=== PATIENT | male | born 1965 | race Caucasian/White ===

== ENCOUNTER 2023-06-03 16:48 | Outpatient (CLI) | payer OTHER, SELFPAY ==
--- NOTE | ~2023-06-03 | MR_ITS ---
EXAMINATION: MR shoulder RT wo con DATE: 06/03/2023 17:28 INDICATION: Shoulder pain, loss of range of motion. Injury after moving furniture. History of rotator cuff repair. TECHNIQUE: Magnetic resonance imaging (MRI) of the right shoulder was performed x-ray right shoulder 05/20/2023 intravenous contrast. Sequences included axial PD-weighted FS FSE, coronal oblique PD-weigh ofelia FS FSE and T2-weighted FS FSE, and sagittal oblique T2-weighted FS FSE and T1-weighted FSE. COMPARISON: X-ray right shoulder 05/20/2023. FINDINGS: Coracoacromial arch: No significant anterolateral downsloping of the type II acromion. No subacromial narrowing. Mild subc oracoid narrowing. Severe AC joint hypertrophy and significant inferior osteophytosis. Rotator cuff: Thinning of the distal cuff. Prior rotator cuff repair. Bursal sided fraying. 6 mm near full-thicknes s articular sided tear of the infraspinatus at the 12:00 position, with a focal associated full-thick ness perforation. Tendinopathy involving the infraspinatus and supraspinatus tendons. Longitudinally oriented intrasubstance type tearing at the musculotendinous junction of the infraspinatus. The teres minor is intact. Mild partial tear of the subscapularis. Biceps tendon and glenoid labrum: Mild medial subluxation of the long head of biceps tendon. The long and short heads of the biceps ten don are intact. Mild degenerative change in the glenoid labrum, without focal tear Fluid: Large volume subacromial subdeltoid fluid collection. Moderate volume glenohumeral joint collection w ith mild synovitis. Bones/cartilage: No abnormal marrow signal. Mild glenohumeral cartilage thinning. IMPRESSION: Full-thickness and intrasubstance type tears of the infraspinatus Tendinopathy and atrophy involving both the supraspinatus and infraspinatus. Mild partial tear of the subscapularis, accompanied by mild long head of biceps tendon subluxation. Severe subacromial subdeltoid bursitis. Severe AC joint and mild glenohumeral joint osteoarthritis. Reviewed, dictated and finalized at location K.
== END 2023-06-03 16:49 | disposition home or self-care (01) ==
LOC: ANHIMG 16:50
PROVIDERS: PCP Nurse Practitioner Family; Visit Provider Nurse Practitioner Family
DX: M75.101 Unspecified rotator cuff tear or rupture of right shoulder, not specified as traumatic (principal); M75.51 Bursitis of right shoulder; M19.011 Primary osteoarthritis, right shoulder
CPT/HCPCS: 73221

== ENCOUNTER 2025-09-27 14:23 | Outpatient (CLI) | payer OTHER, SELFPAY ==
--- OUTSIDE RECORDS SUMMARY | 2025-09-27 17:07 | XMS_ITS | Clinical Summary ---
Author Organization [facility] Address [address] [place] [address] Care Team Providers Care Sustainable Products Marketing Manager Name Role Phone Kyleigh Brothers PA-C Primary Care Provider [phone]- [phone] Allergies No known active allergies Medications lisinopril 10 MG tablet Take 1 tablet (10 mg total) by mouth daily. 0 11/28/2018 Active tizanidine 4 MG tablet Take 1 tablet by mouth every 8 (eight) hours as needed. 0 12/19/2018 Active Naproxen Sodium (ALEVE) 220 MG Cap Take 1 capsule by mouth nightly. Active traMADol (ULTRAM) 50 MG tablet Take 1 tablet (50 mg total) by mouth every 6 (six) hours as needed for Pain. Active esomeprazole (NEXIUM) 20 MG capsule Take 1 capsule (20 mg total) by mouth every morning before breakfast. Active Active Problems Problem Noted Date Diagnosed Date S/P reverse total shoulder arthroplasty, right 0 03/13/2024 S/P rotator cuff surgery 11/15/2023 Diastasis recti 08/21/2016 Biliary dyskinesia 05/16/2016 Abdominal hernia 04/13/2015 Bladder polyp 02/03/2015 Encounters Date Type Department Care Team Description 08/25/2025 3:30 PM CDT - 08/25/2025 11:59 PM CDT Hospital Encounter [facility] Ultrasound [address] [place] [address] Sydney Tenorio, DOUGH MIXING MACHINE OPERATOR Discharge Disposition: Home or Self Care (Routine Discharge) 08/25/2025 Travel from Last 3 Months Family History Medical History Relation Comments None Father None Mother Relation Status Comments Father Alive Mother Alive Social History Tobacco Use Types Packs/Day Years Used Date Smoking Tobacco: Former Cigarettes Q uit: 2017 Smokeless Tobacco: Never Alcohol Use Standard Drinks/Week Comments Yes 0 (1 standard drink = 0.6 oz pur e alcohol) AUDIT-C Answer Date Recorded Frequency of Alcohol Consumption 2-4 times a mon 12/22/2018 Average Number of Drinks Not on file 019 Frequency of Binge Drinking Not on file 12/05 Education Answer Date Recorded What is the highest level of school you have completed or the highest degree you have received? Some college, no degree 12/22/2018 Sex and Gender Information Value Date Recorded Sex Assigned at Not on file Legal Sex Male 6:16 PM CDT Gender Identity Not on file Sexual Orientation Straight 12/22/2018 3: 27 PM [employer]ACO [employer] Occupation Industry Job Start Date Job End Date Not on file Not on file Not on file Not on file Last Filed Vital Signs Vital Sign Reading Time Taken Comments Blood Pressure 136/66 09/30/2023 10:52 AM TACO MAKER Pulse 77 09/30/2023 10:52 AM TACO MAKER Temperature 36.7 C (98 F) 09/30/2023 10:52 AM TACO MAKER Respiratory Rate 18 09/30/2023 10:52 AM TACO MAKER Oxygen Saturation 99% 09/30/2023 10:52 AM TACO MAKER Inhaled Oxygen Concentration - - Weight 104.3 kg (230 lb) 09/30/2023 10:52 AM TACO MAKER Height 185.4 cm (6' 1) 09/30/2023 10:52 AM TACO MAKER Body Mass Index 30.34 09/30/2023 10:52 AM TACO MAKER Plan of Treatment Health Maintenance Due Date Last Done Comments Colorectal Cancer Screening Colonoscopy (10 Years) 1963 Annual Physical 1966 Hepatitis C 1981 DTaP, Tdap and Td Vaccines ( 1 - Tdap) 1982 Pneumococcal Vaccine: 50+ Ye ars (1 of 1 - PCV) 2013 Zoster Vaccines (1 of 2) 2013 PHQ-2 (Physician [place]) 11/04/2024 COVID-19 Vaccine ( - 2024-2 6 season) 2025 Influenza Adult (#1) 2025 RSV Immunization or 60+ Years (1 - 1-dose 75+ series) 2038 Hepatitis A Vaccines Aged Out No long er eligible based on patient's age to complete this topic Meningococcal B Vaccine Aged Out No l onger eligible based on patient's age to complete this topic Meningococcal Vaccine Aged Out No martinez marta eligible based on patient's age to complete this topic RSV Immunizations Under 20 Months Aged Out No longer eligible based on patient's age to complete this topic Procedures Procedure Name Priority Date/Time Associated Diagnosis Comments US SOFT TISS HEAD OR NECK STAT 08/25/2025 4:15 PM CDT Localized swelling, mass and lump, neck from Last 3 Months Results * US SOFT TISS HEAD OR NECK (08/25/2025 4:15 PM CDT) Anatomical Region Laterality Modality Head, Neck Ultrasound 08/25/2025 4:23 PM CDT Impressions 08/25/2025 4:26 PM CDT IMPRESSION: No sonographic evidence is seen to account for the patient's left neck mass. If further imaging is clinically warranted, CT or MRI of the neck soft tissues with intravenous contrast could be obtained. Referred By: SYDNEY TENORIO Interpreted By: Ceasar Kaba DO, 08/25/2025 4:23 PM Narrative 08/25/2025 4:26 PM CDT [facility] [address] [facility] [place] [address] Examination: US SOFT TISS HEAD OR NECK Exam time: 08/25/2025 3:44 PM Clinical history: Neck mass. Comparison: None. Technique: Sonographic evaluation of the area of concern in the left neck was performed to assess grayscale and color Doppler characteristics with grayscale images of the right neck obtained for comparison purposes. Findings: No sonographic evidence is seen to suggest discrete soft tissue mass or fluid collection in the area of concern. There is a reniform focus in the left neck that demonstrates fatty hilum compatible with a morphologically benign-appearing lymph node. Procedure Note Ceasar Kaba DO - 08/25/2025 [facility] [address] [place] [address] Examination: US SOFT TISS HEAD OR NECK Exam time: 08/25/2025 3:44 PM Clinical history: Neck mass. Comparison: None. Technique: Sonographic evaluation of the area of concern in the left neckwas performed to assess grayscale and color Doppler characteristics withgrayscale images of the right neck obtained for comparison purposes. Findings: No sonographic evidence is seen to suggest discrete soft tissue mass orfluid collection in the area of concern. There is a reniform focus in theleft neck that demonstrates fatty hilum compatible with a morphologicallybenign-appearing lymph node. IMPRESSION: No sonographic evidence is seen to account for the patient's left neckmass. If further imaging is clinically warranted, CT or MRI of the necksoft tissues with intravenous contrast could be obtained. 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
== END 2025-09-27 14:24 | disposition home or self-care (01) ==
LOC: ANHAUDIO 14:26
PROVIDERS: PCP Nurse Practitioner Family; Visit Provider Otolaryngology
DX: H90.42 Sensorineural hearing loss, unilateral, left ear, with unrestricted hearing on the contralateral side (principal); H93.13 Tinnitus, bilateral; H93.8X2 Other specified disorders of left ear
CPT/HCPCS: 92557; 92567

== ENCOUNTER 2025-10-02 08:35 | Outpatient (CLI) | payer OTHER, SELFPAY ==
--- NOTE | ~2025-10-02 | CT_ITS ---
EXAMINATION: CT soft tissue neck w con DATE: 10/02/2025 09:17 INDICATION: Sialadenitis, unspecified. TECHNIQUE: Computed tomography (CT) of the neck was performed with 75 mL Omnipaque-350 intravenous contrast. Automated exposure control and iterative reconstruction technique were employed. The dose-length product was 538.41 mGy-cm. COMPARISON: None FINDINGS: There are likely changes of ocular lens replacement surgeries. There are no pathologically enlarged lymph nodes. The parotid glands, submandibular glands, and sublingual glands are normal. There is no sialolith. There is mild mucosal thickening in the paranasal sinuses. The mastoid air cells are normal. There is moderate cervical spondylosis. IMPRESSION: 1. Normal major salivary glands. No sialolith. Reviewed, dictated and finalized at location E. UMER MARKETING MANAGER
[2025-10-02 09:07] LABS: Estimated Glomerular Filt Rate > 60
== END 2025-10-02 08:36 | disposition home or self-care (01) ==
PROVIDERS: PCP Nurse Practitioner Family; Visit Provider Otolaryngology
DX: K11.20 Sialoadenitis, unspecified (principal)
CPT/HCPCS: 70491; Q9967